=== PATIENT | female | born 1970 | race African-American/Black ===

== ENCOUNTER 2020-05-19 04:21 | Emergency (ER) | payer OTHER, SELFPAY | END 2020-05-19 05:30 | disposition home or self-care (01) | LOC: CSHERS 04:21 | DX: M25.572 Pain in left ankle and joints of left foot (principal) ==

== ENCOUNTER 2021-06-24 09:22 | Inpatient (IN) | payer BC ==
[~2021-06-24 09:22] MED LIST: Iopamidol 300 61% 100 ML VIAL FS ONE; Magnevist 469MG/ML 20 ML VIAL ONE
[2021-06-24] MEDS ORDERED: Acetaminophen 500 MG TAB ONE (10:22)
[2021-06-24 10:38] LABS: Bilirubin Neg (Negative); Blood, Urine 25 (Negative); Clarity Clear (Clear); Glucose, Urine (Dipstick) Normal (Negative); Ketone, Urine 5 mg/dL (Negative); Leukocyte Negative (Negative); Nitrite Negative (Negative); Protein, Urine (Dipstick) 100 mg/dl (Neg-Trace); pH, Urine 6.5 (5.0-9.0)
[2021-06-24 10:45] LABS: ALT (SGPT) 611 U/L (8-55); AST (SGOT) 499 U/L (5-34); Albumin 3.9 g/dL (3.5-5.0); Alkaline Phosphatase 347 U/L (40-110); Anion Gap 13 mmol/L (10-20); BUN (Urea Nitrogen) 10 mg/dL (9.8-20.1); Bilirubin, Total 1.4 mg/dL (0.2-1.2); Calc. Creatinine Clearance 0 mL/min (70-130); Carbon Dioxide 26 mmol/L (22-29); Chloride 103 mmol/L (98-107); Globulin 3.2 g/dL (2.4-3.5); Glucose 97 mg/dL (70-105); Lipase 12 U/L (8-78); Potassium 3.7 mmol/L (3.5-5.1); Protein, Total 7.1 g/dL (6.0-8.3); Sodium 138 mmol/L (136-145)
[2021-06-24 10:48] LABS: Bacteria/HPF Rare-Few HPF (None Seen); RBC/HPF 0-3 HPF (0-3); WBC/HPF None Seen HPF (0-3)
[2021-06-24 11:16] LABS: MONO NEGATIVE CONTROL ZONE White (Negative) (White); MONO POSITIVE CONTROL Pink Line (Positive) (PINK/RED); Mononucleosis NEGATIVE (NEGATIVE)
[2021-06-24 11:27] LABS: Hemoglobin 14.1 g/dL (12.0-15.5); Mean Corpuscular HGB CONC 34.4 g/dL (32.0-36.0); Mean Corpuscular Hemoglobin 31.2 pg (27.0-33.0); Mean Corpuscular Volume 90.7 fl (81.6-98.3); Mean Platelet Volume 12.9 fl (7.4-10.4); Platelet Count 98 10x3/uL (150-450); RBC Distribution Width 13.3 % (11.5-14.5); Red Blood Cell (RBC) Count 4.52 10x6/uL (3.90-5.03); White Blood Cell (WBC) Count 1.8 10x3/uL (3.5-10.5)
[2021-06-24 11:35] LABS: MDiff Complete? YES
[2021-06-24 11:40] LABS: Band 16 % (5-11); Lymphocytes 25 % (21-51); Monocytes 2 % (0-10); Neutrophil 56 % (42-75); Reactive Lymphocytes 1 % (0-10)
[2021-06-24] MEDS ORDERED: Piperacillin/Tazobactam 4.5 GM VIAL ONE (11:41)
[2021-06-24 11:42] LABS: Platelet Morphology Comment Appears Decreased; RBC Morphology Normal
[2021-06-24 13:17] LABS: Syphilis Antibody Nonreactive (Nonreactive); Syphilis Antibody Index 0.05 S/CO (<1.00 Non-Reactive)
[2021-06-24 13:18] LABS: HIV (1/2) Antibody/Antigen Non-Reactive (NonReactive); HIV 1/2 INDEX 0.06 S/CO (<1.00); Hep B Surf Ag Non-Reactive S/CO (NonReactive)
[2021-06-24 13:33] LABS: HBSAg Index 0.17 S/CO (0-0.99)
[2021-06-24 14:04] VITALS: BMI 24.0
[2021-06-24] MEDS ORDERED: Ondansetron ODT 4 MG TAB PO PRN (14:59)
[2021-06-24] MEDS ORDERED: cefTRIAXone\\ROCEPHIN 1 GM in Sodium Chloride 0.9% 100 ML IVPB SCH (15:30)
[2021-06-24] MEDS ORDERED: Acetaminophen 325 MG TAB PO PRN (15:47)
[2021-06-24] MEDS ORDERED: traMADol HCl 50 MG TAB PO PRN (15:48)
[2021-06-24] MEDS: Ondansetron PF 4 MG/2 ML Vial IVP PRN (18:04)
[2021-06-24] MEDS: Sodium Chloride 0.9% 1,000 ML IV SCH (18:04)
[2021-06-24] MEDS: Cefepime 1 GM in Sodium Chloride 0.9% 100 ML IVPB SCH (18:04)
[2021-06-24 18:50] LABS: Reflex for Review?? YES
[2021-06-24] MEDS: metroNIDAZOLE 500 MG in Premix Bag 1 BAG IVPB SCH (18:51)
[2021-06-24 20:31] LABS: Amphetamine Not Detected (NotDetected); Barbiturates Screen Not Detected (NotDetected); Benzodiazepine Screen Not Detected (NotDetected); Cocaine Metabolite Screen Not Detected (NotDetected); Methadone Not Detected (NotDetected); Methamphetamine Not Detected (NotDetected); Opiate Screen Not Detected (NotDetected); Oxycodone Screen Not Detected (NotDetected); Phencyclidine (PCP) Not Detected (NotDetected); THC/Cannabinoid Screen Not Detected (NotDetected); Tricyclic Screen Not Detected (NotDetected)
[2021-06-24 22:22] LABS: HBCM Index 0.07 S/CO (0-0.79); Hep A IgM AB Non-Reactive (NonReactive); Hep C IgG Ab Non-Reactive (NonReactive); Hepatitis B Core IgM Abs Non-Reactive (NonReactive)
[2021-06-24 23:29] LABS: INR-International Normal Ratio 1.1; Prothrombin Time 11.7 sec (9.5-12.1)
[2021-06-25] MEDS: Morphine 2 MG/ML VIAL SLOW IVP PRN ×3 (00:22→07:56)
[2021-06-25] MEDS: metroNIDAZOLE 500 MG in Premix Bag 1 BAG IVPB SCH ×3 (00:25→12:12)
[2021-06-25 03:54] LABS: Pregnancy Test - Urine (BHCG) Negative (Negative)
[2021-06-25 03:55] LABS: Pregu Control Background? CLEAR/WHITE (CLR/WHITE); Pregu Control Bar Appear? YES (CONTROL BAR)
[2021-06-25] MEDS: Cefepime 1 GM in Sodium Chloride 0.9% 100 ML IVPB SCH ×2 (04:41→16:46)
[2021-06-25] MEDS: Sodium Chloride 0.9% 1,000 ML IV SCH ×2 (04:48→12:19)
[2021-06-25 04:58] LABS: MONO NEGATIVE CONTROL ZONE White (Negative) (White); Mononucleosis NEGATIVE (NEGATIVE)
[2021-06-25 04:59] LABS: MONO POSITIVE CONTROL Pink Line (Positive) (PINK/RED)
[2021-06-25 05:29] LABS: ALT (SGPT) 719 U/L (8-55); AST (SGOT) 667 U/L (5-34); Albumin 3.1 g/dL (3.5-5.0); Alkaline Phosphatase 263 U/L (40-110); Anion Gap 13 mmol/L (10-20); BUN (Urea Nitrogen) 8 mg/dL (9.8-20.1); Bilirubin, Total 0.7 mg/dL (0.2-1.2); Calc. Creatinine Clearance 77 mL/min (70-130); Calcium 7.9 mg/dL (7.8-10.44); Carbon Dioxide 22 mmol/L (22-29); Chloride 110 mmol/L (98-107); Globulin 2.5 g/dL (2.4-3.5); Glucose 118 mg/dL (70-105); Potassium 3.6 mmol/L (3.5-5.1); Protein, Total 5.6 g/dL (6.0-8.3); Sodium 141 mmol/L (136-145)
[2021-06-25 05:55] LABS: Hemoglobin 11.8 g/dL (12.0-15.5); Mean Corpuscular Hemoglobin 31.1 pg (27.0-33.0); Mean Corpuscular Volume 91.3 fl (81.6-98.3); Mean Platelet Volume 13.2 fl (7.4-10.4); Platelet Count 97 10x3/uL (150-450); RBC Distribution Width 13.6 % (11.5-14.5); White Blood Cell (WBC) Count 1.5 10x3/uL (3.5-10.5)
[2021-06-25 06:38] LABS: MDiff Complete? YES
[2021-06-25 06:48] LABS: Lymphocytes 38 % (21-51); Monocytes 8 % (0-10); Neutrophil 54 % (42-75)
[2021-06-25 06:51] LABS: Platelet Morphology Comment Appears Decreased; RBC Morphology Normal
[2021-06-25] MEDS ORDERED: Ketorolac Tromethamine 30 MG/ML VIAL IVP SCH (11:30)
[2021-06-25 12:33] LABS: Hemoglobin A1c 5.4 % (4.0-6.0)
[2021-06-25] MEDS ORDERED: Polyethylene Glycol 3350 17 GM Packet PO SCH (16:00)
[2021-06-25] MEDS ORDERED: metroNIDAZOLE 500 MG in Premix Bag 1 BAG IVPB SCH (18:00)
[2021-06-25] MEDS: Acetaminophen 325 MG TAB PO PRN (20:33)
[2021-06-25] MEDS: Ondansetron PF 4 MG/2 ML Vial IVP PRN (20:34)
[2021-06-25] MEDS: Senokot S 8.6-50 MG TAB PO SCH (22:41)
[2021-06-25] MEDS: Doxycycline 100 MG CAP PO SCH (22:41)
[2021-06-26] MEDS: Sodium Chloride 0.9% 1,000 ML IV SCH ×3 (01:55→16:58)
[2021-06-26] MEDS: Cefepime 1 GM in Sodium Chloride 0.9% 100 ML IVPB SCH ×2 (04:50→16:58)
[2021-06-26 06:01] LABS: Hemoglobin 11.4 g/dL (12.0-15.5); Mean Corpuscular HGB CONC 34.3 g/dL (32.0-36.0); Mean Corpuscular Hemoglobin 31.1 pg (27.0-33.0); Mean Corpuscular Volume 90.7 fl (81.6-98.3); Mean Platelet Volume 12.9 fl (7.4-10.4); Platelet Count 103 10x3/uL (150-450); RBC Distribution Width 13.5 % (11.5-14.5); Red Blood Cell (RBC) Count 3.66 10x6/uL (3.90-5.03); White Blood Cell (WBC) Count 1.4 10x3/uL (3.5-10.5)
[2021-06-26 06:12] LABS: ALT (SGPT) 977 U/L (8-55); AST (SGOT) 930 U/L (5-34); Albumin 2.9 g/dL (3.5-5.0); Alkaline Phosphatase 227 U/L (40-110); Anion Gap 11 mmol/L (10-20); BUN (Urea Nitrogen) 6 mg/dL (9.8-20.1); Bilirubin, Total 0.8 mg/dL (0.2-1.2); Calc. Creatinine Clearance 92 mL/min (70-130); Calcium 7.6 mg/dL (7.8-10.44); Carbon Dioxide 20 mmol/L (22-29); Cardiac Risk 6.1 (Less than 4.5); Chloride 113 mmol/L (98-107); Cholesterol 104 mg/dl (< 200 Desired); Globulin 2.3 g/dL (2.4-3.5); Glucose 87 mg/dL (70-105); HDL Cholesterol 17 mg/dL (>60 Neg Risk); LDL Cholesterol, Calculated 64 mg/dL; Magnesium 1.7 mg/dL (1.6-2.6); Potassium 3.6 mmol/L (3.5-5.1); Protein, Total 5.2 g/dL (6.0-8.3); Sodium 140 mmol/L (136-145); Triglycerides 113 mg/dL (Less than 150)
[2021-06-26 06:40] LABS: MDiff Complete? YES
[2021-06-26 06:45] LABS: Band 20 % (5-11); Lymphocytes 38 % (21-51); Monocytes 2 % (0-10); Neutrophil 38 % (42-75)
[2021-06-26 06:46] LABS: Platelet Morphology Comment PLT clumps seen-LOW; RBC Morphology Normal
[2021-06-26] MEDS ORDERED: Ondansetron PF 4 MG/2 ML Vial ONE (07:47)
[2021-06-26] MEDS: Ondansetron PF 4 MG/2 ML Vial IVP PRN ×2 (07:51→12:48)
[2021-06-26 07:52] LABS: INR-International Normal Ratio 1.1
[2021-06-26] MEDS: Polyethylene Glycol 3350 17 GM Packet PO SCH (08:08)
[2021-06-26] MEDS: Senokot S 8.6-50 MG TAB PO SCH ×2 (08:08→21:21)
[2021-06-26] MEDS: Doxycycline 100 MG CAP PO SCH ×2 (09:25→21:10)
[2021-06-26 10:40] LABS: EBV VCA IgM <36.0 U/mL (0.0-35.9)
[2021-06-26] MEDS: Acetaminophen 325 MG TAB PO PRN ×2 (12:48→21:09)
[2021-06-26] MEDS: hydrOXYzine 25 MG TAB PO PRN (12:48)
[2021-06-26] MEDS: Metoclopramide HCl 10 MG/2 ML VIAL IVP PRN (15:00)
[2021-06-26] MEDS ORDERED: traZODone HCl 50 MG TAB PO PRN (21:00)
[2021-06-26] MEDS: Melatonin 3 MG TAB PO SCH (21:20)
[2021-06-27 04:07] LABS: Hep A IgM AB Non-Reactive (NonReactive); Hep A IgM S/CO 0.22 S/CO (0-0.79)
[2021-06-27] MEDS: Cefepime 1 GM in Sodium Chloride 0.9% 100 ML IVPB SCH (04:14)
[2021-06-27] MEDS: Acetaminophen 325 MG TAB PO PRN (04:27)
[2021-06-27] MEDS: Ondansetron PF 4 MG/2 ML Vial IVP PRN (04:28)
[2021-06-27 05:55] LABS: Hemoglobin 11.2 g/dL (12.0-15.5); Mean Corpuscular HGB CONC 34.5 g/dL (32.0-36.0); Mean Corpuscular Hemoglobin 30.8 pg (27.0-33.0); Mean Corpuscular Volume 89.3 fl (81.6-98.3); Mean Platelet Volume 12.5 fl (7.4-10.4); Platelet Count 112 10x3/uL (150-450); RBC Distribution Width 13.4 % (11.5-14.5); Red Blood Cell (RBC) Count 3.64 10x6/uL (3.90-5.03); White Blood Cell (WBC) Count 1.8 10x3/uL (3.5-10.5)
[2021-06-27 06:10] LABS: MDiff Complete? YES
[2021-06-27 06:12] LABS: ALT (SGPT) 793 U/L (8-55); AST (SGOT) 623 U/L (5-34); Albumin 2.8 g/dL (3.5-5.0); Alkaline Phosphatase 222 U/L (40-110); Anion Gap 12 mmol/L (10-20); BUN (Urea Nitrogen) 7 mg/dL (9.8-20.1); Bilirubin, Total 0.8 mg/dL (0.2-1.2); Calc. Creatinine Clearance 87 mL/min (70-130); Calcium 7.8 mg/dL (7.8-10.44); Carbon Dioxide 22 mmol/L (22-29); Chloride 110 mmol/L (98-107); Globulin 2.3 g/dL (2.4-3.5); Glucose 96 mg/dL (70-105); Magnesium 1.7 mg/dL (1.6-2.6); Potassium 3.7 mmol/L (3.5-5.1); Protein, Total 5.1 g/dL (6.0-8.3); Sodium 140 mmol/L (136-145)
[2021-06-27 06:18] LABS: Band 16 % (5-11); Lymphocytes 38 % (21-51); Monocytes 7 % (0-10); Neutrophil 33 % (42-75); Reactive Lymphocytes 5 % (0-10)
[2021-06-27 06:20] LABS: Ovalocytes SLIGHT = 2-5 cells (100X) (0-1/hpf); Platelet Morphology Comment Appears Decreased
[2021-06-27] MEDS: Sodium Chloride 0.9% 1,000 ML IV SCH ×2 (06:50→18:25)
[2021-06-27] MEDS: Doxycycline 100 MG CAP PO SCH ×2 (08:47→20:27)
[2021-06-27] MEDS: Metoclopramide HCl 10 MG/2 ML VIAL IVP PRN ×2 (08:51→15:12)
[2021-06-27] MEDS: Polyethylene Glycol 3350 17 GM Packet PO SCH ×2 (08:51→09:00)
[2021-06-27] MEDS: Senokot S 8.6-50 MG TAB PO SCH ×3 (08:51→20:27)
[2021-06-27] MEDS: hydrOXYzine 25 MG TAB PO PRN (15:13)
[2021-06-27] MEDS: Cefepime 2 GM in Sodium Chloride 0.9% 100 ML IVPB SCH (18:29)
[2021-06-27] MEDS: Enoxaparin Sodium 30 MG/0.3 ML SYRINGE SC SCH (20:26)
[2021-06-27] MEDS: Melatonin 3 MG TAB PO SCH (20:27)
[2021-06-27 20:37] LABS: HIV-1 Quantitative, RNA PCR <20 copies/mL (.)
[2021-06-28] MEDS: Sodium Chloride 0.9% 1,000 ML IV SCH ×2 (00:30→17:30)
[2021-06-28] MEDS: Cefepime 2 GM in Sodium Chloride 0.9% 100 ML IVPB SCH (05:33)
[2021-06-28 05:47] LABS: Platelet Count 155 10x3/uL (150-450)
[2021-06-28 05:48] LABS: #Monocytes 0.2 10x3/uL (0.0-1.1); #Neutrophils 1.2 10x3/uL (1.5-8.4); %Basophils 0.8 % (0.0-2.0); %Monocytes 6.8 % (0.0-10.0); Hemoglobin 12.2 g/dL (12.0-15.5); Mean Corpuscular HGB CONC 34.4 g/dL (32.0-36.0); Mean Corpuscular Hemoglobin 31.3 pg (27.0-33.0); Mean Platelet Volume 13.6 fl (7.4-10.4); RBC Distribution Width 13.4 % (11.5-14.5); White Blood Cell (WBC) Count 2.7 10x3/uL (3.5-10.5)
[2021-06-28 05:51] LABS: ALT (SGPT) 862 U/L (8-55); AST (SGOT) 669 U/L (5-34); Albumin 3.2 g/dL (3.5-5.0); Alkaline Phosphatase 237 U/L (40-110); Anion Gap 14 mmol/L (10-20); BUN (Urea Nitrogen) 6 mg/dL (9.8-20.1); Bilirubin, Total 0.8 mg/dL (0.2-1.2); Calc. Creatinine Clearance 82 mL/min (70-130); Calcium 8.3 mg/dL (7.8-10.44); Carbon Dioxide 25 mmol/L (22-29); Chloride 107 mmol/L (98-107); Globulin 2.7 g/dL (2.4-3.5); Glucose 86 mg/dL (70-105); Magnesium 1.9 mg/dL (1.6-2.6); Potassium 3.7 mmol/L (3.5-5.1); Protein, Total 5.9 g/dL (6.0-8.3); Sodium 142 mmol/L (136-145)
[2021-06-28] MEDS: Doxycycline 100 MG CAP PO SCH ×3 (07:20→21:01)
[2021-06-28] MEDS: Melatonin 3 MG TAB PO SCH ×2 (07:21→21:01)
[2021-06-28] MEDS: Polyethylene Glycol 3350 17 GM Packet PO SCH (08:52)
[2021-06-28] MEDS: Senokot S 8.6-50 MG TAB PO SCH ×2 (08:52→21:01)
[2021-06-28] MEDS ORDERED: Polyethylene Glycol 3350 17 GM Packet PO PRN (09:05)
[2021-06-28] MEDS: Ondansetron PF 4 MG/2 ML Vial IVP PRN (17:35)
[2021-06-28] MEDS: Enoxaparin Sodium 30 MG/0.3 ML SYRINGE SC SCH (21:01)
[2021-06-29] MEDS: Ondansetron PF 4 MG/2 ML Vial IVP PRN ×2 (03:46→17:26)
[2021-06-29 04:49] LABS: Hemoglobin 11.6 g/dL (12.0-15.5); Mean Corpuscular HGB CONC 35.3 g/dL (32.0-36.0); Mean Corpuscular Hemoglobin 31.3 pg (27.0-33.0); Mean Corpuscular Volume 88.7 fl (81.6-98.3); Mean Platelet Volume 13.5 fl (7.4-10.4); Platelet Count 191 10x3/uL (150-450); RBC Distribution Width 13.4 % (11.5-14.5); Red Blood Cell (RBC) Count 3.71 10x6/uL (3.90-5.03); White Blood Cell (WBC) Count 2.9 10x3/uL (3.5-10.5)
[2021-06-29 04:50] LABS: ALT (SGPT) 664 U/L (8-55); AST (SGOT) 416 U/L (5-34); Alkaline Phosphatase 207 U/L (40-110); Anion Gap 15 mmol/L (10-20); BUN (Urea Nitrogen) 6 mg/dL (9.8-20.1); Bilirubin, Total 0.7 mg/dL (0.2-1.2); Calc. Creatinine Clearance 92 mL/min (70-130); Calcium 8.2 mg/dL (7.8-10.44); Carbon Dioxide 24 mmol/L (22-29); Chloride 109 mmol/L (98-107); Globulin 2.5 g/dL (2.4-3.5); Glucose 91 mg/dL (70-105); Magnesium 1.9 mg/dL (1.6-2.6); Potassium 3.7 mmol/L (3.5-5.1); Protein, Total 5.5 g/dL (6.0-8.3); Sodium 144 mmol/L (136-145)
[2021-06-29] MEDS: Sodium Chloride 0.9% 1,000 ML IV SCH (05:55)
[2021-06-29 06:05] LABS: Band 3 % (5-11); Lymphocytes 46 % (21-51); Monocytes 11 % (0-10); Reactive Lymphocytes 3 % (0-10)
[2021-06-29 06:06] LABS: MDiff Complete? YES; Manual Diff?? YES; Platelet Morphology Comment Appears Adequate
[2021-06-29 06:08] LABS: Large Platelets SLIGHT
[2021-06-29] MEDS: Doxycycline 100 MG CAP PO SCH ×2 (08:44→20:32)
[2021-06-29] MEDS: Senokot S 8.6-50 MG TAB PO SCH (11:40)
[2021-06-29] MEDS: Enoxaparin Sodium 30 MG/0.3 ML SYRINGE SC SCH (20:32)
[2021-06-30] MEDS: Melatonin 3 MG TAB PO SCH (00:17)
[2021-06-30] MEDS: Senokot S 8.6-50 MG TAB PO SCH ×2 (00:17→09:47)
[2021-06-30 04:43] LABS: Magnesium 1.9 mg/dL (1.6-2.6)
[2021-06-30] MEDS: Doxycycline 100 MG CAP PO SCH (09:29)
[2021-06-30 09:41] LABS: Hep C PCR-Quant HCV Not Detected IU/mL (.)
[2021-06-30 10:11] LABS: ANA Symphony (Qualitative) Negative (Negative); ANA Symphony (Quantitative) 0.1 Ratio (< 0.7 Negative); dsDNA IgG Antibody 0.6 IU/mL (<10 Negative)
[2021-06-30 10:39] LABS: EliA Vaculitis New Method **** NEW METHOD ****; Mitochondrial Ab 0.5 U/mL (<4 Negative)
[2021-06-30 10:58] LABS: #Basophils 0.1 10x3/uL (0.0-0.2); #Monocytes 0.5 10x3/uL (0.0-1.1); #Neutrophils 1.3 10x3/uL (1.5-8.4); %Basophils 1.5 % (0.0-2.0); %Eosinophils 0.9 % (0.0-6.0); %Monocytes 13.9 % (0.0-10.0); %Neutrophils 38.5 % (40.0-75.0); Hemoglobin 11.9 g/dL (12.0-15.5); Mean Corpuscular HGB CONC 34.7 g/dL (32.0-36.0); Mean Corpuscular Hemoglobin 31.4 pg (27.0-33.0); Mean Corpuscular Volume 90.5 fl (81.6-98.3); Mean Platelet Volume 13.6 fl (7.4-10.4); Platelet Count 228 10x3/uL (150-450); Red Blood Cell (RBC) Count 3.79 10x6/uL (3.90-5.03); White Blood Cell (WBC) Count 3.4 10x3/uL (3.5-10.5)
[2021-06-30 11:53] LABS: Anion Gap 18 mmol/L (10-20); BUN (Urea Nitrogen) 5 mg/dL (9.8-20.1); Calc. Creatinine Clearance 95 mL/min (70-130); Calcium 8.5 mg/dL (7.8-10.44); Carbon Dioxide 21 mmol/L (22-29); Chloride 110 mmol/L (98-107); Glucose 85 mg/dL (70-105); Potassium 3.9 mmol/L (3.5-5.1); Sodium 145 mmol/L (136-145)
[2021-06-30 11:55] LABS: ALT (SGPT) 523 U/L (8-55); AST (SGOT) 237 U/L (5-34); Albumin 3.1 g/dL (3.5-5.0); Alkaline Phosphatase 194 U/L (40-110); Bilirubin, Direct 0.3 mg/dL (0.1-0.3); Bilirubin, Total 0.6 mg/dL (0.2-1.2); Protein, Total 5.5 g/dL (6.0-8.3)
[2021-06-30 13:41] LABS: Smooth Muscle Total ABS 4 Units (0-19)
[2021-06-30 14:36] VITALS: BP 125/65; TEMP 98
[2021-06-30 18:37] LABS: HBV as IU/mL HBV DNA not detected IU/mL (.)
[2021-07-01 13:34] LABS: Reference Lab Name KARIUS
[2021-07-06 14:13] LABS: Routine O & P Final report (.)
== END 2021-06-30 16:15 | disposition home or self-care (01) | DRG 872 ==
LOC: CSHERS 09:22 → CSHTELE 13:52
PROVIDERS: ADMIT Family Medicine; ATTEND Hospitalist
DX: A41.9 Sepsis, unspecified organism (principal); B17.9 Acute viral hepatitis, unspecified; N17.9 Acute kidney failure, unspecified; R74.01 Elevation of levels of liver transaminase levels; K76.89 Other specified diseases of liver; D69.6 Thrombocytopenia, unspecified; D18.00 Hemangioma unspecified site; D70.9 Neutropenia, unspecified; R50.81 Fever presenting with conditions classified elsewhere; N28.1 Cyst of kidney, acquired; R19.7 Diarrhea, unspecified; R63.0 Anorexia; F41.9 Anxiety disorder, unspecified; G47.00 Insomnia, unspecified; Z68.24 Body mass index [BMI] 24.0-24.9, adult
CPT/HCPCS: 36415; 74177; 74183; 76705; 80048; 80053; 80061; 80074; 80076; 80143; 80306; 81003; 81015; 81025; 82105; 82248; 82390; 82977; 83036; 83516; 83605; 83690; 83735; 84145; 84443; 85025; 85060; 85610; 86015; 86038; 86225; 86308; 86664; 86665; 86709; 86753; 86780; 86790; 87040; 87045; 87046; 87086; 87177; 87324; 87328; 87329; 87337; 87389; 87427; 87449; 87517; 87522; 87536; 93005; 94760; 96365; 96366; 80307; A9579; J0692; J1650; J1885; J2270; J2405; J2543; J2765; J3490; J7050; Q9967